=== PATIENT | female | born 1960 | race Caucasian/White ===

== ENCOUNTER → 2018-04-05 | Outpatient (CLI) | payer OTHER ==
[~2018-04-05] MED LIST: ACETAMINOPHEN325 M1 PO; ARIXTRA; ASPIRIN EC325 M1 PO; ASPIRIN325; ASPIRIN325 PO; BACTRIM DS TAB1 EACH PO; CALCIUM; CALCIUM 600 +1 EAC1 PO; CARAFATE 1 GM TA1 G1 PO; CHLORTHALIDONE25 MG PO; CIPRO250 M1 PO; CIPROFLOXACIN500 M1 PO; COLACE100 MG PO; COMPAZINE10 MG PO; ENDOCET 7.5-321 EACH PO; FISH OIL 1,0001 EAC5 PO; FISH OIL 1,001000 M2 PO; FISH OIL PO; FISH OIL/OMEGA 3 PO; FISHOIL; FLAGYL500 MG PO; FLEXERIL PO; GLUCOSAMINE HC500 MG PO; GLUCOSAMINE-MS1 EAC3 PO; HYDROCHLOROTHIA25 M1; HYDROCHLOROTHIA25 M1 PO; HYDROCHLOROTHIA25 M2 PO; HYDROCODON-ACE1 EAC8 PO; HYDROCODONE-AP1 EAC6 PO; K-DUR 20 MEQ T20 MEQ; K-DUR 20 MEQ T20 MEQ PO; LEVOTHYROXIN0.175 MG PO; LEVOTHYROXINE PO; LEVOXYL150 MCG PO; METAMUCIL PAC1 UDPK1 GT; METAMUCIL PAC1 UDPKT PO; NEURONTIN 300300 M1 PO; NIASPAN ER 101000 M1; OMEPRAZOLE 20 M20 M1 PO; OXYCODONE HCL 55 MG PO; PERCOCET 5-3251 EACH PO; PERCOCET PO; POTASSIUM20 PO; PRILOSEC 20 MG20 MG; PRILOSEC 20 MG20 MG PO; SORINE 80 MG TA80 M1 PO; SYNTHROID200 MCG; VITAMIN D; WELLBUTRIN XL300 M1; XARELTO10 MG PO; ZOCOR40 MG PO; ZOFRAN ODT4 MG PO
[2018-04-05 16:54] LABS: ABSOLUTE EOSINOPHILS 0.2 thou/uL (0.0-0.7); ABSOLUTE LYMPHOCYTES 2.5 thou/uL (0.8-5.3); ABSOLUTE MONOCYTES 0.4 thou/uL (0.0-1.2); ABSOLUTE NEUTROPHILS 4.1 thou/uL (1.6-8.1); BASOPHILS 0.6 %; EOSINOPHILS 2.3 %; HEMATOCRIT 40.6 % (37.0-47.0); HEMOGLOBIN 13.7 gm/dL (12.0-15.0); LYMPHOCYTES 34.7 %; MCH 31.2 pg (26.0-34.0); MCHC 33.8 g/dL (28.0-37.0); MCV 92.4 fL (80.0-100.0); MONOCYTES 5.9 %; NUCLEATED RBCS 0 /100WBC; PLATELET COUNT* 258 thou/uL (150-400); POLYS 56.5 %; RDW-CV 13.8 % (10.5-14.5); WBC 7.3 thou/uL (4.0-11.0)
[2018-04-05 17:12] LABS: ALBUMIN 3.3 g/dL (3.4-5.0); ALKALINE PHOSPHATASE 100 U/L (46-116); ANION GAP 5 mmol/L (7-16); BUN 13 mg/dL (7-18); CHLORIDE 102 mmol/L (98-107); CO2 33 mmol/L (21-32); CREATININE 0.7 mg/dL (0.6-1.3); GLUCOSE 115 mg/dL (70-99); POTASSIUM 3.1 mmol/L (3.5-5.1); SGOT 26 U/L (15-37); SGPT 31 U/L (30-65); SODIUM 140 mmol/L (136-145); TOTAL BILIRUBIN 0.4 mg/dL (<0.1-1.0); TOTAL PROTEIN 7.5 g/dL (6.4-8.2)
[2018-04-05 17:54] LABS: ESR (SEDRATE) 27 mm/hr (0-30)
== END ==
LOC: M.LAB 16:22
PROVIDERS: Internal Medicine Gastroenterology
DX: R19.7 Diarrhea, unspecified (principal)

== ENCOUNTER 2018-04-11 04:07 | Emergency (ER) | payer OTHER ==
[~2018-04-11] VITALS: Ht 154.9 cm; Wt 106.6 kg
[~2018-04-11 04:07] MED LIST changes: -ENDOCET 7.5-321 EACH PO
[2018-04-11 05:23] LABS: ABSOLUTE BASOPHILS 0.1 thou/uL (0.0-0.2); ABSOLUTE EOSINOPHILS 0.2 thou/uL (0.0-0.7); ABSOLUTE LYMPHOCYTES 3.6 thou/uL (0.8-5.3); ABSOLUTE MONOCYTES 0.5 thou/uL (0.0-1.2); ABSOLUTE NEUTROPHILS 5.2 thou/uL (1.6-8.1); BASOPHILS 1.2 %; HEMATOCRIT 43.2 % (37.0-47.0); HEMOGLOBIN 14.8 gm/dL (12.0-15.0); LYMPHOCYTES 37.3 %; MCH 31.4 pg (26.0-34.0); MCHC 34.2 g/dL (28.0-37.0); MCV 91.8 fL (80.0-100.0); MONOCYTES 4.9 %; MPV 6.9 fl. (7.2-11.1); NUCLEATED RBCS 0 /100WBC; PLATELET COUNT* 271 thou/uL (150-400); POLYS 54.6 %; RBC 4.71 mil/uL (4.20-5.00); RDW-CV 14.1 % (10.5-14.5); WBC 9.6 thou/uL (4.0-11.0)
[2018-04-11 05:43] LABS: CALCIUM 9.3 mg/dL (8.5-10.1); CREATININE 0.8 mg/dL (0.6-1.3); POTASSIUM 3.2 mmol/L (3.5-5.1)
[2018-04-11] MEDS ORDERED: ENDOCET 7.5-321 EACH PO (06:52)
[2018-04-11 07:03] VITALS: BP 137/72
== END 2018-04-11 07:03 | disposition home or self-care (01) ==
LOC: M.ERS 04:07
PROVIDERS: Emergency Medicine
DX: S80.02XA Contusion of left knee, initial encounter (principal); S80.01XA Contusion of right knee, initial encounter; R07.89 Other chest pain; I10 Essential (primary) hypertension; E78.00 Pure hypercholesterolemia, unspecified; I48.91 Unspecified atrial fibrillation; Z90.710 Acquired absence of both cervix and uterus; Z96.653 Presence of artificial knee joint, bilateral; Z90.721 Acquired absence of ovaries, unilateral; W17.2XXA Fall into hole, initial encounter; Y93.89 Activity, other specified; Y92.481 Parking lot as the place of occurrence of the external cause; Y99.8 Other external cause status

== ENCOUNTER 2018-07-16 06:00 | Emergency (ER) | payer OTHER ==
[~2018-07-16] VITALS: Ht 154.9 cm; Wt 102.1 kg
[~2018-07-16 06:00] MED LIST changes: +ENDOCET 7.5-321 EACH PO
[2018-07-16] MEDS ORDERED: BYDUREON P2 MG/0.65 (06:14)
[2018-07-16 06:33] LABS: ABSOLUTE BASOPHILS 0.1 thou/uL (0.0-0.2); ABSOLUTE EOSINOPHILS 0.2 thou/uL (0.0-0.7); ABSOLUTE LYMPHOCYTES 3.4 thou/uL (0.8-5.3); ABSOLUTE MONOCYTES 0.6 thou/uL (0.0-1.2); ABSOLUTE NEUTROPHILS 5.6 thou/uL (1.6-8.1); BASOPHILS 0.7 %; EOSINOPHILS 2.4 %; HEMATOCRIT 40.9 % (37.0-47.0); HEMOGLOBIN 13.9 gm/dL (12.0-15.0); LYMPHOCYTES 34.5 %; MCH 30.7 pg (26.0-34.0); MCHC 34.1 g/dL (28.0-37.0); MCV 90.3 fL (80.0-100.0); MONOCYTES 6.2 %; MPV 7.2 fl. (7.2-11.1); NUCLEATED RBCS 0 /100WBC; PLATELET COUNT* 278 thou/uL (150-400); POLYS 56.2 %; RBC 4.54 mil/uL (4.20-5.00); WBC 9.9 thou/uL (4.0-11.0)
[2018-07-16 06:55] LABS: PROTIME 10.3 Seconds (9.20-11.50)
[2018-07-16 07:03] LABS: ANION GAP 10 mmol/L (7-16); BUN 22 mg/dL (7-18); CHLORIDE 103 mmol/L (98-107); CO2 29 mmol/L (21-32); CREATININE 0.8 mg/dL (0.6-1.3); GLUCOSE 121 mg/dL (70-99); SODIUM 142 mmol/L (136-145); TROPONIN-I LEVEL <0.06 ng/mL (<0.06)
[2018-07-16 07:06] LABS: ALBUMIN 3.2 g/dL (3.4-5.0); ALKALINE PHOSPHATASE 90 U/L (46-116); NT-PRO BRAIN NAT PEPTIDE 57 pg/mL (<300); SGOT 20 U/L (15-37); SGPT 27 U/L (30-65); TOTAL BILIRUBIN 0.2 mg/dL (<0.1-1.0); TOTAL PROTEIN 7.9 g/dL (6.4-8.2)
[2018-07-16 07:21] LABS: URINE BILIRUBIN NEGATIVE (Negative); URINE BLOOD NEGATIVE (Negative); URINE CLARITY CLEAR; URINE COLOR YELLOW; URINE GLUCOSE-RANDOM NEGATIVE (Negative); URINE KETONES NEGATIVE (Negative); URINE LEUKOCYTES-REFLEX NEGATIVE (Negative); URINE NITRITE-REFLEX NEGATIVE (Negative); URINE PROTEIN NEGATIVE (Negative); URINE SPECIFIC GRAVITY 1.025 (1.005-1.030); URINE UROBILINOGEN 0.2 E.U./dl (0.2-1.0)
[2018-07-16 09:10] LABS: BE 1.7 mmol/L (-2 to +3); PCO2 40.2 mmHg (35.0-45.0); PO2 67.3 mmHg (75.0-100.0)
[2018-07-16 09:40] VITALS: BP 118/56
--- NOTE | 2018-07-16 15:54 | EKG ---
[place] [address] ELECTROCARDIOGRAM REPORT Name: CELESTINO DOMINGUEZ Room: [facility]#: [id number] Admission: 07/16/18 Attend Phys: Discharge: 07/16/18 Date of : 60 Report #: [id number] THIS REPORT FOR: //name// [facility] ED Test Date: 2018-07-16 Test Time: 06:11:03 Pat Name: CELESTINO DOMINGUEZ Department: Room: Gender: F [employer] Operator: : 1960 Requested By: Joy Juárez Order Number: [id number] MD: Lc Anderson Measurements Intervals Tilly Rate: 95 P: 19 AR: 175 QRS: 26 QRSD: 87 T: -4 QT: 374 QTc: 470 Interpretive Statements Sinus rhythm Borderline T abnormalities, anterior leads Compared to ECG 08/17/2016 14:38:23 T-wave abnormality now present Electronically Signed On 07-16-2018 15:54:31 CDT by Lc Anderson [email or web address] <ELECTRONICALLY SIGNED> By: Lc Anderson MD, [facility] 07/16/18 1554 0 0 Lc Anderson MD, FAC /EPI
== END 2018-07-16 09:40 | disposition home or self-care (01) ==
LOC: M.ERS 06:00
PROVIDERS: Emergency Medicine; Personal Emergency Response Attendant
DX: R00.2 Palpitations (principal); R09.02 Hypoxemia; R07.89 Other chest pain; I10 Essential (primary) hypertension; E78.00 Pure hypercholesterolemia, unspecified; I48.91 Unspecified atrial fibrillation; Z96.651 Presence of right artificial knee joint; Z90.710 Acquired absence of both cervix and uterus; Z88.0 Allergy status to penicillin; Z88.5 Allergy status to narcotic agent; Z88.8 Allergy status to other drugs, medicaments and biological substances

== ENCOUNTER → 2018-09-17 | Outpatient (CLI) | payer OTHER ==
[~2018-09-17] MED LIST changes: +BYDUREON P2 MG/0.65
--- NOTE | 2018-10-01 22:34 | SLEEP ---
[address] [address] SLEEP STUDY REPORT Name: CELESTINO DOMINGUEZ Room: [facility]#: [id number] Admission: 09/17/18 Attend Phys: Praveen Giordano MD Discharge: Date of : 60 Report #: [id number] THIS REPORT FOR: //name// CC: Pasquale Giordano This study has been reviewed in its entirety by a board certified sleep specialist DATE OF SERVICE: 09/19/2018 HOME SLEEP STUDY ATTENDING PHYSICIAN: Dr. Pasquale Morton. The patient is 57 years old who weighs 225 pounds with a BMI of 42.5. The patient's Hale score was 13. The patient underwent home sleep study performed by [facility]. Total recording time was 377 minutes. During the night study, the patient had 16 obstructive apneas, 1 central apnea, no mixed apneas and 210 hypopneas. The patient's apnea hypopnea index was 36 per hour. Supine sleep was not recorded. Nocturnal oximetry study revealed an average oxygen saturation of 90% with a lowest of 76%. 118 minutes were spent at an oxygen saturation less than 90% and another 20 minutes with saturation of less than 85%. The mean heart rate was 91 beats per minute with a maximum of 108 beats per minute. IMPRESSION: 1. Severe sleep apnea-hypopnea syndrome at an AHI of 36 per hour. 2. Moderate nocturnal hypoxia secondary to obstructive sleep apnea. RECOMMENDATIONS: 1. The patient would benefit from in-lab CPAP titration study due to the severity of sleep apnea. 2. Once the patient is optimally treated, then follow up in 4-6 weeks to assess compliance with CPAP and to document clinical improvement. 3. Weight loss is strongly advised. 4. [place] [address] SLEEP STUDY REPORT Name: CELESTINO DOMINGUEZ Room: [facility]#: [id number] Admission: 09/17/18 Attend Phys: Praveen Giordano MD Discharge: Date of : 60 Report #: [id number] 5. Cautioned regarding driving until symptoms of sleep apnea resolve with the use of CPAP. <ELECTRONICALLY SIGNED> By: Ruben Whitaker MD 10/01/18 2234 1741 Pito Whitaker MD /nt
== END ==
LOC: M.SLEEPLAB 09-16 09:00
DX: G47.33 Obstructive sleep apnea (adult) (pediatric) (principal); R09.02 Hypoxemia; R53.83 Other fatigue; R40.0 Somnolence

== ENCOUNTER → 2018-10-22 | Outpatient (CLI) | payer OTHER | LOC: M.RAD 07:30 | DX: Z12.31 Encounter for screening mammogram for malignant neoplasm of breast (principal) ==

== ENCOUNTER → 2019-04-18 | Outpatient (CLI) | payer OTHER ==
[2019-04-18 09:46] LABS: POTASSIUM 3.3 mmol/L (3.5-5.1)
== END ==
LOC: M.LAB 04:06
PROVIDERS: Anesthesiology
DX: E87.6 Hypokalemia (principal); E11.9 Type 2 diabetes mellitus without complications

== ENCOUNTER 2019-09-18 03:48 | Emergency (ER) | payer OTHER ==
[~2019-09-18] VITALS: Ht 154.9 cm; Wt 108.9 kg
[2019-09-18] MEDS ORDERED: SYNTHROID150 MCG (03:56)
[2019-09-18] MEDS ORDERED: BYDUREON P2 MG/0.65 (03:58)
[2019-09-18] MEDS ORDERED: HYDROCODON-ACE1 EAC7 PO (04:05)
[2019-09-18 05:00] VITALS: BP 117/64
== END 2019-09-18 05:00 | disposition home or self-care (01) ==
LOC: M.ERS 03:48
DX: S86.002A Unspecified injury of left Achilles tendon, initial encounter (principal); I10 Essential (primary) hypertension; E78.00 Pure hypercholesterolemia, unspecified; I48.91 Unspecified atrial fibrillation; Z90.710 Acquired absence of both cervix and uterus; Z96.651 Presence of right artificial knee joint; Z79.82 Long term (current) use of aspirin; Z88.0 Allergy status to penicillin; Z88.6 Allergy status to analgesic agent; Z88.8 Allergy status to other drugs, medicaments and biological substances; X50.3XXA Overexertion from repetitive movements, initial encounter; Y93.01 Activity, walking, marching and hiking; Y92.834 Zoological garden (Zoo) as the place of occurrence of the external cause; Y99.8 Other external cause status

== ENCOUNTER → 2019-09-22 | Outpatient (CLI) | payer OTHER ==
[~2019-09-22] MED LIST changes: +HYDROCODON-ACE1 EAC7 PO; +SYNTHROID150 MCG
== END ==
LOC: M.ULTRA 14:30
PROVIDERS: ATTEND Physician Assistant
DX: S86.002A Unspecified injury of left Achilles tendon, initial encounter (principal); M76.62 Achilles tendinitis, left leg; M77.8 Other enthesopathies, not elsewhere classified; X58.XXXA Exposure to other specified factors, initial encounter; Y93.89 Activity, other specified; Y92.89 Other specified places as the place of occurrence of the external cause; Y99.8 Other external cause status

== ENCOUNTER 2019-12-11 06:10 | Emergency (ER) | payer OTHER ==
[~2019-12-11] VITALS: Ht 154.9 cm; Wt 108.9 kg
[2019-12-11] MEDS ORDERED: KEFLEX500 M1 PO (07:40)
[2019-12-11] MEDS ORDERED: PREDNISONE 20 M20 M1 PO (07:40)
[2019-12-11 07:44] VITALS: BP 136/73
== END 2019-12-11 07:45 | disposition home or self-care (01) ==
LOC: M.ERS 06:10
DX: J02.0 Streptococcal pharyngitis (principal); Z20.828 Contact with and (suspected) exposure to other viral communicable diseases; I10 Essential (primary) hypertension; E78.00 Pure hypercholesterolemia, unspecified; I48.91 Unspecified atrial fibrillation; Z88.6 Allergy status to analgesic agent; Z88.0 Allergy status to penicillin; Z88.8 Allergy status to other drugs, medicaments and biological substances; Z90.710 Acquired absence of both cervix and uterus; Z96.653 Presence of artificial knee joint, bilateral; Z90.721 Acquired absence of ovaries, unilateral

== ENCOUNTER 2020-03-28 17:17 | Emergency (ER) | payer OTHER ==
[~2020-03-28] VITALS: Ht 154.9 cm; Wt 95.3 kg
[~2020-03-28 17:17] MED LIST changes: +KEFLEX500 M1 PO; +PREDNISONE 20 M20 M1 PO
[2020-03-28 18:06] VITALS: BP 149/71
== END 2020-03-28 18:07 | disposition home or self-care (01) ==
LOC: M.ERS 17:17
DX: S61.203A Unspecified open wound of left middle finger without damage to nail, initial encounter (principal); I10 Essential (primary) hypertension; E78.00 Pure hypercholesterolemia, unspecified; I48.91 Unspecified atrial fibrillation; Z96.653 Presence of artificial knee joint, bilateral; Z98.51 Tubal ligation status; Z90.721 Acquired absence of ovaries, unilateral; Z88.0 Allergy status to penicillin; Z88.6 Allergy status to analgesic agent; Z90.710 Acquired absence of both cervix and uterus; Z88.8 Allergy status to other drugs, medicaments and biological substances; W26.8XXA Contact with other sharp object(s), not elsewhere classified, initial encounter; Y93.89 Activity, other specified; Y92.89 Other specified places as the place of occurrence of the external cause; Y99.8 Other external cause status

== ENCOUNTER 2020-04-18 05:39 | Emergency (ER) | payer OTHER ==
[~2020-04-18] VITALS: Ht 154.9 cm; Wt 108.9 kg
[2020-04-18 06:27] LABS: INFLUENZA A ANTIGEN Negative (Negative); INFLUENZA B ANTIGEN Negative (Negative)
[2020-04-18 06:44] VITALS: BP 142/81
== END 2020-04-18 06:46 | disposition home or self-care (01) ==
LOC: M.ERS 05:39
PROVIDERS: Personal Emergency Response Attendant
DX: R50.9 Fever, unspecified (principal); Z20.828 Contact with and (suspected) exposure to other viral communicable diseases; R51.9 Headache, unspecified; I10 Essential (primary) hypertension; I48.91 Unspecified atrial fibrillation; Z88.6 Allergy status to analgesic agent; Z88.0 Allergy status to penicillin; Z79.899 Other long term (current) drug therapy; Z79.82 Long term (current) use of aspirin; Z90.710 Acquired absence of both cervix and uterus

== ENCOUNTER → 2020-12-06 | Outpatient (CLI) | payer OTHER ==
[2020-12-06 12:36] LABS: ABSOLUTE BASOPHILS 0.1 thou/uL (0.0-0.2); ABSOLUTE EOSINOPHILS 0.2 thou/uL (0.0-0.7); ABSOLUTE LYMPHOCYTES 2.6 thou/uL (0.8-5.3); ABSOLUTE MONOCYTES 0.4 thou/uL (0.0-1.2); ABSOLUTE NEUTROPHILS 5.5 thou/uL (1.6-8.1); BASOPHILS 0.9 %; EOSINOPHILS 2.1 %; HEMATOCRIT 40.3 % (37.0-47.0); HEMOGLOBIN 13.6 gm/dL (12.0-15.0); MCH 30.3 pg (26.0-34.0); MCHC 33.7 g/dL (28.0-37.0); MCV 89.7 fL (80.0-100.0); MONOCYTES 4.5 %; MPV 6.7 fl. (7.2-11.1); NUCLEATED RBCS 0 /100WBC; PLATELET COUNT* 243 thou/uL (150-400); POLYS 62.5 %; RBC 4.49 mil/uL (4.20-5.00); RDW-CV 14.4 % (10.5-14.5); WBC 8.8 thou/uL (4.0-11.0)
[2020-12-06 13:16] LABS: ALBUMIN 3.3 g/dL (3.4-5.0); ALKALINE PHOSPHATASE 99 U/L (46-116); ANION GAP 4 mmol/L (7-16); BUN 14 mg/dL (7-18); CALCIUM 9.2 mg/dL (8.5-10.1); CHLORIDE 105 mmol/L (98-107); CHOLESTEROL 187 mg/dL (<200); CO2 34 mmol/L (21-32); CREATININE 0.7 mg/dL (0.6-1.3); GLUCOSE 91 mg/dL (70-99); HDL CHOLESTEROL 41 mg/dL (>40); LDL CHOLESTEROL 90 mg/dL (<100); MAGNESIUM 1.8 mg/dL (1.8-2.4); POTASSIUM 3.9 mmol/L (3.5-5.1); SGOT 18 U/L (15-37); SGPT 25 U/L (30-65); SODIUM 143 mmol/L (136-145); TC:HDL 4.6 Ratio (Not establshd); TOTAL BILIRUBIN 0.3 mg/dL (<0.1-1.0); TOTAL PROTEIN 7.4 g/dL (6.4-8.2); TRIGLYCERIDE 282 mg/dL (<150); VLDL 56 mg/dL (<40)
[2020-12-06 13:17] LABS: SERUM ASSESSMENT Clear
[2020-12-07 07:08] LABS: GLYCOHEMOGLOBIN (HGB A1C) 6.3 % (4.8-5.6)
== END ==
LOC: M.LAB 12:14
PROVIDERS: ATTEND Family Medicine
DX: Z12.31 Encounter for screening mammogram for malignant neoplasm of breast (principal); I10 Essential (primary) hypertension; E78.5 Hyperlipidemia, unspecified; E06.3 Autoimmune thyroiditis; E11.59 Type 2 diabetes mellitus with other circulatory complications; Z86.010 Personal history of colon polyps